=== PATIENT | male | born 1995 | race Caucasian/White ===

== ENCOUNTER 2019-06-18 12:47 | Emergency (ER) | payer SELFPAY ==
[~2019-06-18] VITALS: Ht 177.8 cm; Wt 68.0 kg
[~2019-06-18 12:47] MED LIST: CODACE30 PO; IBUP800 PO; METPHE10; Naprosyn500 MG PO; PENVK500 PO; Robaxin500 MG PO; Ultram50 MG PO
[2019-06-18 13:41] LABS: Influenza A Positive (NEGATIVE); Influenza B Negative (NEGATIVE)
== END 2019-06-18 14:08 | disposition home or self-care (01) ==
LOC: ER 12:47
PROVIDERS: Physician Assistant
DX: J10.1 Influenza due to other identified influenza virus with other respiratory manifestations (principal); F17.200 Nicotine dependence, unspecified, uncomplicated
CPT/HCPCS: 87804; 99283